=== PATIENT | male | born 1935 | race Caucasian/White ===

== ENCOUNTER 2022-12-11 09:10 | Emergency (ER) | payer MEDICARE, SELFPAY ==
[2022-12-11 09:13] VITALS: BP 136/81; PULSE 70; RESP 20; TEMP 35.8; O2SAT 97
[2022-12-11 09:29] VITALS: BMI 28.5
--- NOTE | 2022-12-11 10:09 | EKG12_ITS ---
Test Reason : CONFUSIONS Blood Pressure : / mmHG Vent. Rate : 062 BPM Atrial Rate : 062 BPM P-R Int : 356 ms QRS Dur : 084 ms QT Int : 448 ms P-R-T Axes : 074 -17 120 degrees QTc Int : 454 ms Sinus rhythm with 1st degree A-V block Nonspecific T wave abnormality Abnormal ECG Confirmed by ESTEBAN ISAACS, GEORGE ([id number]), news editor DEBRA CARLSON ([id number]) on 12/14/2022 10:35:04 AM Referred By: Confirmed By:JIMMIE ORELLANA MD
--- NOTE | 2022-12-11 10:09 | CT_ITS ---
INDICATION: weakness EXAMINATION: CT BRAIN - CT Head or Brain W/O Contrast Injection TECHNIQUE: Multiple axial images were obtained of the head without intravenous contrast. A radiation dose optimization technique was used for this scan. IV Contrast dosage and agent: None. RADIATION DOSAGE (If Supplied By Facility): CTDIvol = ( 44.99 ) mGy, DLP = ( 846.73 ) mGycm COMPARISON: No relevant prior comparison study available FINDINGS: BRAIN PARENCHYMA: No intra- or extra-axial hemorrhage. No evidence of acute infarct. No intracranial mass or mass effect. There is preservation of the romero/white matter interface. Posterior fossa structures are unremarkable. Mild chronic periventricular deep white matter changes likely due to microvascular disease. Atherosclerotic calcifications of the cavernous internal carotid arteries. CSF SPACES: Appropriate for age. No hydrocephalus. Basal cisterns are patent. CALVARIUM, SKULL BASE, PARANASAL SINUSES AND MASTOID AIR CELLS: Clear. No discrete lytic or blastic abnormalities. ORBITS: Both globes, extraocular muscles, optic nerves and retrobulbar fat appear unremarkable. ASPECTS Score for Acute Strokes: 10 CT/Brain/Head without Contrast IMPRESSION: No acute intracranial process. Electronically Signed: Nithin Antoine MD at 11:40 EDT ,
--- NOTE | 2022-12-11 10:10 | EDS_ITS ---
HPI History of Present Illness Chief Complaint: Confusion Narrative Narrative: Patient presents with generalized weakness. Apparently he got up in the middle the night his gait was a little unsteady and he fell. He thinks he may have hit the right side of his ribs as well as possibly his head. He has no headache at this time. He was somewhat short of breath at the time however this has improved and although he still feels slightly weak he thinks he feels better and is breathing better than he did after the fall. No recent fevers or chills. No urinary symptoms. He is denying any other type of chest pain other than rib pain on the right lower side. He is on Eliquis and takes it. He has no lower extremity edema or calf pain. [facility] Medical History Atrial fibrillation Hx of completed stroke Hypertension Home Medications apixaban 5 mg tablet (Eliquis) 5 mg PO BID 12/11/22 [History Last Taken Unknown] atorvastatin 80 mg tablet 80 mg PO DAILY 12/11/22 [History Last Taken Unknown] lisinopril 40 mg tablet 40 mg PO DAILY 12/11/22 [History Last Taken Unknown] nifedipine 90 mg tablet,extended release 90 mg PO DAILY 12/11/22 [History Last Taken Unknown] tamsulosin 0.4 mg capsule (Flomax) 0.8 mg PO QHS 12/11/22 [History Last Taken Unknown] Allergy/AdvReac Type Severity Reaction Status Date / Time tetanus and diphtheria Allergy Severe Anaphylaxis Verified 12/11/22 09:13 toxoids dronedarone [From Multaq] AdvReac Severe SYNCOPE Verified 12/11/22 09:13 Social History Smoking Status: Never smoker ROS ROS ED ROS Narrative Past medical history: Reviewed, includes prior hemorrhagic stroke, he continues to have paroxysmal A-fib and is still on Eliquis Medications: Reviewed including Eliquis Social history: Noncontributory Review of systems: All systems negative except as indicated General: No fever Eyes: No visual changes ENT: No upper airway congestion, normal voice Neck: No neck pain Cardiovascular: No chest pain Chest wall: Right-sided chest wall pain Respiratory: He had some dyspnea last night and early this morning however this seems to have subsided. Gastrointestinal: No abdominal pain, nausea vomiting or diarrhea Genitourinary: No dysuria Musculoskeletal: Denies myalgias no difficulty with ambulation Skin: No rash Neurological: No memory loss, confusion or any focal weakness. He had some confusion again this is resolved. EXAM Physical Exam Narrative Exam Narrative: Physical exam General: Well nourished, Well developed, No Acute Distress Head: Normocephalic, see any signs of trauma. Eyes: Conjunctiva not pale pulls are equal and reactive about 3 mm. ENT: Moist mucous membranes I do not see any signs of dehydration. Neck: Supple, Nontender, No lymphadenopathy Cardiovascular: Regular rate, Regular rhythm Respiratory: No distress, CTA bilaterally Chest wall: Right chest wall pain in the mid axillary line of the lower ribs however I do not see any contusions. Abdomen: Soft, Nontender, Nondistended Back: Nontender, Normal Inspection. Negative for: CVA tenderness Extremities: Nontender, No edema Skin: Normal color, No rash Neurological: Alert, Normal Strength, Normal Sensation Psychological: Normal affect Const Vital Signs: 12/11/22 09:13 Temperature 96.4 F L Temperature Source Temporal Pulse Rate 70 Respiratory Rate 20 H Blood Pressure 136/81 H Blood Pressure Mean 99 Pulse Ox 97 Oxygen Delivery Method Room Air MDM MDM MDM Narrative Medical decision making narrative: Work-up is unremarkable. No evidence of intracranial disease, no evidence of UTI or any kind of infection no anemia or electrolyte problems. He appears well. He is now able to ambulate and get around, he feels much better. He does have rib contusion but otherwise no other issues. We will discharge him in stable condition. His son will take him home. Patient does not meet admission criteria. I am not worried about pulmonary embolism, he takes his Eliquis twice a day and does not miss doses. Lab Data Labs: Laboratory Results - last 24 hr 12/11/22 12/11/22 10:20 12:20 WBC 10.3 RBC 4.27 L Hgb 13.0 Hct 37.5 L MCV 87.8 MCH 30.4 MCHC 34.7 RDW Std Deviation 40.6 RDW Coeff of Virgen 12.7 Plt Count 214 MPV 9.1 Immature Gran % (Auto) 1.000 H Neut % (Auto) 82.6 H Lymph % (Auto) 8.3 L [place] % (Auto) 6.4 Eos % (Auto) 1.1 Baso % (Auto) 0.6 Absolute Neuts (auto) 8.5 H Absolute Lymphs (auto) 0.86 Nucleated RBC % 0 Sodium 137 Potassium 3.8 Chloride 105 Carbon Dioxide 28.0 Anion Gap 4 L BUN 22 H Creatinine 0.98 Estim Creat Clear Calc 51.52 Est GFR (MDRD) Af Amer 93 Est GFR (MDRD) Non-Af 77 BUN/Creatinine Ratio 22.3 H Glucose 167 H Calcium 9.1 Total Bilirubin 0.90 AST 29 ALT 38 Alkaline Phosphatase 100 Troponin I High Sens 9 B-Natriuretic Peptide 135.0 H Total Protein 7.3 Albumin 3.7 Globulin 3.6 Albumin/Globulin Ratio 1.0 Urine Color Yellow Urine Clarity Sl. Cloudy Urine pH 6.0 Ur Specific [place] 1.020 Urine Protein 30 H Urine Glucose (UA) Normal Urine Ketones 5 H Urine Occult Blood 10 H Urine Nitrite Negative Urine Bilirubin Negative Urine Urobilinogen 4 H Ur Leukocyte Esterase 25 H Urine RBC 0-5 SEEN Urine WBC 0 SEEN Ur Squamous Epith Cells 0 SEEN Urine Bacteria 0 SEEN Urine Mucus 0 SEEN Radiography Diagnostic Testing: Clinical Impression(s) from Imaging Studies Brain CT 12/11/22 10:09 IMPRESSION: No acute intracranial process. Electronically Signed: Nithin Antoine MD at 11:40 EDT , Chest X-Ray 12/11/22 10:45 IMPRESSION: No radiographic evidence of acute cardiopulmonary disease. Electronically Signed: Nithin Antoine MD at 11:41 EDT , X-ray read by me as normal. Discharge Plan Triage Chief Complaint: Confusion ED Provider: Kristopher Fabian Dx/Rx/DC Orders Clinical Impression: Contusion of rib, Fall Instructions: ED Bruise, Rib Prescriptions: No Action tamsulosin [Flomax] 0.4 mg capsule 0.8 mg PO QHS nifedipine 90 mg tablet extended release 90 mg PO DAILY atorvastatin 80 mg tablet 80 mg PO DAILY lisinopril 40 mg tablet 40 mg PO DAILY Eliquis 5 mg tablet 5 mg PO BID Primary Care Provider: TRIP ALLEN Referrals: TRIP ALLEN [Other] Disposition Disposition: Home, Self Care
--- NOTE | 2022-12-11 10:14 | NURSING ---
NO OLD EKGS
[2022-12-11 10:26] LABS: Absolute Lymphocyte Count 0.86 X10^3/uL (0.83-4.51); Absolute Neutrophil Count 8.5 X10^3/uL (2.0-7.7); Basophil# 0.06 X10^3/uL; Basophil% 0.6 % (0-1); Eosinophil# 0.11 X10^3/uL; Eosinophils% 1.1 % (0-5); Hematocrit 37.5 % (40-54); Lymphocyte # 0.86 X10^3/ul (0.83-4.51); Lymphocyte % 8.3 % (19-41); Mean Corp Hgb Conc 34.7 g/dL (32-36); Mean Corpuscular Hgb 30.4 pg (27.0-32.0); Mean Corpuscular Volume 87.8 fL (80-94); Mean Platelet Vol. 9.1 fl (6.2-12.0); Monocyte# 0.66 X10^3/uL; Monocyte% 6.4 % (0-10); NRBC Flagged by Analyzer 0 % (0-5); Neutrophil # 8.52 X10^3/uL (2.7-7.7); Neutrophil % 82.6 % (47-70); Platelet Count 214 K/mm3 (150-450); RBC Distribution Width CV 12.7 % (11.6-14.6); RBC Distribution Width SD 40.6 fl (35.1-43.9); Red Blood Count 4.27 M/mm3 (4.6-6.2); White Blood Count 10.3 K/mm3 (4.4-11.0)
[2022-12-11 10:44] LABS: AST(SGOT) 29 U/L (15-37); Alanine Aminotransfer ALT/SGPT 38 U/L (16-61); Albumin, Serum 3.7 g/dL (3.2-5.0); Alkaline Phosphatase 100 U/L (45-117); Anion Gap 4 (5-15); BUN 22 mg/dL (7-18); BUN/Creat Ratio 22.3 RATIO (10-20); Calcium,Total 9.1 mg/dL (8.5-10.1); Chloride 105 mmol/L (98-107); Creatinine, Serum 0.98 mg/dL (0.70-1.30); EST Glomerular Filtration Rate 77 mL/min (>60); Est Glom Filt Rate - Afr Amer 93 mL/min (>60); Estimated Creatinine Clearance 51.52 ml/min; Globulin 3.6 g/dL (2.2-4.2); Glucose 167 mg/dL (74-106); Potassium 3.8 mmol/L (3.5-5.1); Protein, Total 7.3 g/dL (6.4-8.2); Sodium Level 137 mmol/L (136-145); Troponin-I HS 9 pg/mL (3.0-78.0)
--- NOTE | 2022-12-11 10:45 | RAD_ITS ---
INDICATION: sob EXAMINATION/TECHNIQUE: X-RAY - XR Chest 2 Views COMPARISON: No relevant prior comparison study available FINDINGS: LINES/DEVICES: None. LUNGS: No consolidation, edema or effusion. No pneumothorax. MEDIASTINUM AND CARDIOVASCULAR STRUCTURES: Cardiac silhouette not enlarged. Atherosclerotic calcifications and tortuosity of the thoracic aorta. Central airways and mediastinal contour are unremarkable. BONES AND SOFT TISSUES: Degenerative changes of the thoracic spine. RAD/Chest PA and Lateral IMPRESSION: No radiographic evidence of acute cardiopulmonary disease. Electronically Signed: Nithin Antoine MD at 11:41 EDT ,
[2022-12-11 12:26] LABS: Bacteria 0 SEEN /hpf (None Seen); Mucous, Urine 0 SEEN /hpf (<or=2+); Squamous Epithelial Cells - UA 0 SEEN /hpf (0-5); White Blood Cells 0 SEEN /hpf (0-5)
[2022-12-11 12:30] LABS: Color, Urine Yellow (Yellow); Glucose, Dipstick Normal (Normal); Ketone-Dipstick 5 mg/dl (Negative); Leukocyte Esterase-Dipstick 25 /ul (Negative); Nitrite-Dipstick Negative (Negative); Occult Blood-Urine 10 /ul (Negative); Protein-Dipstick 30 mg/dl (Negative); Urine Bilirubin Dipstick Negative (Negative); Urine Clarity Sl. Cloudy (Clear); Urine Urobilinogen 4 mg/dl (Normal)
[2022-12-11 12:38] LABS: Red Blood Cells-Urine 0-5 SEEN /hpf (0-5)
[2022-12-11 12:48] VITALS: BP 147/89
== END 2022-12-11 12:49 | disposition home or self-care (01) ==
PROVIDERS: Emergency Provider Emergency Medicine; Visit Provider Emergency Medicine
DX: R41.0 Disorientation, unspecified (principal); I48.0 Paroxysmal atrial fibrillation; S20.20XA Contusion of thorax, unspecified, initial encounter; I10 Essential (primary) hypertension; W19.XXXA Unspecified fall, initial encounter; Z79.01 Long term (current) use of anticoagulants; Z86.73 Personal history of transient ischemic attack (TIA), and cerebral infarction without residual deficits; Z79.899 Other long term (current) drug therapy; R06.02 Shortness of breath
CPT/HCPCS: 70450; 71046; 80053; 81001; 83880; 84484; 85025; 93005; 99283

== ENCOUNTER 2022-12-17 05:24 | Emergency (ER) | payer MEDICARE, SELFPAY ==
[2022-12-17 05:25] VITALS: BP 119/79; PULSE 83; RESP 18; TEMP 36.3; O2SAT 95; BMI 27.9
--- NOTE | 2022-12-17 05:49 | CT_ITS ---
We are attempting to reach an attending provider to discuss findings. An addendum with communication details will be sent when the communication is complete. EXAM: CT CHEST WITHOUT INTRAVENOUS CONTRAST CLINICAL INDICATION: right sided chest pain following fall 1 week ago. bone series included TECHNIQUE: Helically acquired images were obtained of the chest without intravenous contrast. This CT exam was performed using one or more of the following dose reduction techniques: automated exposure control, adjustment of the mA and/or kV according to patient size, and/or use of iterative reconstruction technique. RADIATION DOSE: CTDIvol = 15.07 mGy, DLP = 640.10 mGy-cm COMPARISON: Chest radiograph December 11, 2022, there was no visible pneumothorax identified. FINDINGS: LUNGS AND PLEURAL SPACES: There is right pneumothorax, maximum thickness 2.1 cm at the level of the right lung base and 1.8 cm AP at the level of the medial right middle lobe, estimated to be less than 10%. Mild to moderate right pleural effusion, maximum thickness 3.4 cm, Hounsfield units less than 15. Mild groundglass opacity and consolidation at the right lung base, likely compressive atelectasis. No mass. HEART: Mild fluid in the superior pericardial recesses. At least moderate coronary artery calcifications and/or stents. Normal heart size. Mild pericardial effusion, roughly 1.2 cm anterior to the heart. MEDIASTINUM: Small mediastinal lymph nodes. Esophagus is unremarkable. No hiatal hernia. THYROID: Unremarkable. No thyroid lesions. BONES/JOINTS: There are fractures of right fourth through eighth lateral ribs, minimally displaced. Advanced degenerative change at the right glenohumeral joint. Mild degenerative spine changes, no acute findings of the spine. No suspicious lytic or blastic abnormality. VASCULATURE: Ascending aorta 3.7 cm, moderate calcified aortic arch is normal in caliber, descending thoracic aorta is 3.2 cm, not frankly aneurysmal. Heavily calcified proximal intra-abdominal aorta without evidence of aneurysm or dissection. GALLBLADDER AND BILE DUCTS: Cholecystectomy clips. SPLEEN: No acute abnormality of the unenhanced liver or spleen. Multiple calcified splenic granulomas. KIDNEYS AND URETERS: Fairly simple-appearing 2.3 cm presumed right renal cyst, not fully characterized on unenhanced CT. STOMACH AND BOWEL: Presumed duodenal diverticulum common duct of roughly 1 cm. The uncinate process of the pancreas is not fully included. Mildly prominent small bowel content. CT/Chest without Contrast IMPRESSION: 1. Several right lateral acute rib fractures. 2. Mild right pneumothorax, estimated to be roughly 10%. 3. Mild dependent right pleural effusion or hemothorax. Dependent compressive atelectasis at the right lung base. 4. Advanced coronary artery calcifications and suspected stents. Small pericardial effusion. 5. Presumed right renal cyst. Cholecystectomy. Advanced degenerative change of the right glenohumeral joint. Electronically Signed: Lakesah Whelan MD at 6:40 EDT ,
[2022-12-17] MEDS: Ondansetron 4 MG/2 ML Vial IV (06:00)
[2022-12-17] MEDS: Morphine 4 MG/ML Syringe IV (06:01)
[2022-12-17] MEDS: Orphenadrine 60 MG/2 ML Ampul IV (06:02)
--- NOTE | 2022-12-17 06:57 | EX.ED.DYSGE1 ---
HPI History of Present Illness Chief Complaint: Chest Other Informant: patient and friend Narrative Narrative: Patient is an 87-year-old male from home with past medical history of BPH hypertension paroxysmal A-fib and previous CVA with right-sided deficit. He was seen on December 11 after a mechanical fall and at that time had a head CT which revealed no acute brain bleed and a chest x-ray which revealed no obvious pneumothorax rib fracture or hemothorax. The patient's been at home and been doing well. He states that yesterday he was able to drive and he has been continue to do his normal activities of daily living. He reports he got up to go to the restroom this morning and after doing so sharp pain in the right lateral side of his chest. He states that there was no fall or repeat trauma but based on the sudden onset of pain patient and friend had concern for potential fracture or pneumothorax or cardiac event so patient was brought to the ER for evaluation [facility] Medical History Atrial fibrillation Hx of completed stroke Hypertension Home Medications apixaban 5 mg tablet (Eliquis) 5 mg PO BID 12/11/22 [History Last Taken Unknown] atorvastatin 80 mg tablet 80 mg PO DAILY 12/11/22 [History Last Taken Unknown] lisinopril 40 mg tablet 40 mg PO DAILY 12/11/22 [History Last Taken Unknown] nifedipine 90 mg tablet,extended release 90 mg PO DAILY 12/11/22 [History Last Taken Unknown] tamsulosin 0.4 mg capsule (Flomax) 0.8 mg PO QHS 12/11/22 [History Last Taken Unknown] Allergy/AdvReac Type Severity Reaction Status Date / Time tetanus and diphtheria Allergy Severe Anaphylaxis Verified 12/17/22 05:28 toxoids dronedarone [From Multaq] AdvReac Severe SYNCOPE Verified 12/17/22 05:28 Social History Smoking Status: Never smoker ROS ROS ED Constitutional Constitutional ED: Denies chills or fever(s) Eyes Eyes: Denies change in vision ENT ENT ED: Denies sore throat Cardiovascular Cardiovascular: Reports chest pain Respiratory/Chest Respiratory/Chest: Denies cough or dyspnea Gastrointestinal Gastrointestinal: Denies abdominal pain, diarrhea, nausea or vomiting Genitourinary Genitourinary ED: Denies dysuria or hematuria Musculoskeletal Musculoskeletal: Denies back pain Integumentary Denies Abrasions or rash Neurologic Neurologic: Denies headache(s) Hematologic/Lymphatic Hematologic/Lymphatic: Reports easy bleeding and easy bruising EXAM Physical Exam Const Vital Signs: 12/17/22 05:25 12/17/22 05:29 Temperature 97.4 F L Temperature Source Temporal Pulse Rate 83 Respiratory Rate 18 Respiratory Effort Normal Respiratory Pattern Normal Blood Pressure 119/79 Blood Pressure Mean 92 Pulse Ox 95 Oxygen Delivery Method Room Air Positive well nourished and well developed General Appearance ED: well developed HEENT HEENT Narrative: Normocephalic atraumatic Eyes PERRL and EOMs intact bilaterally General Eye ED: Negative for scleral icterus Neck supple Neck Narrative: No bony deformity or step-off of the cervical spine no midline pain with palpation Chest Wall Chest Narrative: There is reproducible right anterior lateral chest wall pain rib regions 5-9 without bony deformity or crepitus noted No overlying ecchymosis present Resp normal respiratory effort and clear to auscultation bilaterally Resp Narrative: Breath sounds are diminished throughout with faint crackles noted in the right lower lobe but no nasal flaring retractions tachypnea or accessory muscle use Cardio regular rate and regular rhythm Rate: other Other Details: Radial and carotid pulses equal and symmetric GI normal to inspection, nondistended, normoactive bowel sounds, non-tender, non-distended and no masses GI Narrative: Soft nontender nondistended with normal active bowel sounds. No voluntary guarding or rigidity. No pulsatile mass or fluid wave Auscultation: normoactive bowel sounds Palpation: soft Extremity normal to inspection Neuro oriented x3 and CN's II-XII intact bilaterally Neuro Narrative: Patient has mild right-sided weakness and sensory loss consistent with previous stroke but no new or acute findings Sensorium / Orientation: alert Psych mental status grossly normal Skin no rashes or lesions noted Skin Narrative: No abrasions or ecchymosis noted MDM MDM MDM Narrative Medical decision making narrative: The patient had a mechanical fall from height 6 days ago and was seen in the ER that time where he had a negative head CT for skull fracture or brain bleed and a chest x-ray was obtained which revealed no pneumothorax rib fracture or hemothorax at that time. The patient was doing well and performing activities of daily living but this morning after just using the restroom reported sudden onset of increased pain. He presented to the ER and at that time has stable vitals and no signs of respiratory distress but with concern for missed rib fracture pneumothorax hemothorax or acute coronary syndrome EKG was obtained with noncontrast CT scan. EKG was sinus rhythm but CT scan revealed multiple rib fractures with associated small pneumothorax and hemothorax. Blood work showed the patient's hemoglobin has dropped from 13-11 but he is maintaining his blood pressure and therefore does not need any type of pressors or blood transfusion. The patient was placed on small amount of nasal cannula oxygen not because he is hypoxic but for nitrogen washout. As the patient's trauma is 6 days old I do not feel the need for further imaging studies as there is been no repeat trauma. I discussed the case with trauma surgeon/Dr. Barriga at [facility] and he recommends that despite having stable vitals and being 6 days out there with the worsening pain in his multiple symptoms that he be transferred to their facility for continued monitoring and care. The patient and his friend were notified of this they do agree to accept the transfer and patient was sent to the facility in stable condition. History & Record Review Discussion w/independent historian: Patient and Friend Lab Data Attestation: I reviewed the patient's lab results. Labs: Laboratory Results - last 24 hr 12/17/22 06:53 WBC 12.0 H RBC 3.77 L Hgb 11.1 L Hct 33.2 L MCV 88.1 MCH 29.4 MCHC 33.4 RDW Std Deviation 40.2 RDW Coeff of Virgen 12.6 Plt Count 220 MPV 9.2 Immature Gran % (Auto) 1.400 H Neut % (Auto) 81.1 H Lymph % (Auto) 5.9 L [place] % (Auto) 8.9 Eos % (Auto) 2.3 Baso % (Auto) 0.4 Absolute Neuts (auto) 9.7 H Absolute Lymphs (auto) 0.71 L Nucleated RBC % 0 PT 15.9 H INR 1.3 APTT 30.3 Sodium 139 Potassium 3.6 Chloride 106 Carbon Dioxide 30.0 Anion Gap 3 L BUN 18 Creatinine 1.04 Estim Creat Clear Calc 48.55 Est GFR (MDRD) Af Amer 87 Est GFR (MDRD) Non-Af 72 BUN/Creatinine Ratio 17.3 Glucose 137 H Calcium 8.7 Radiography Diagnostic Testing: Clinical Impression(s) from Imaging Studies Chest CT 12/17/22 05:49 IMPRESSION: 1. Several right lateral acute rib fractures. 2. Mild right pneumothorax, estimated to be roughly 10%. 3. Mild dependent right pleural effusion or hemothorax. Dependent compressive atelectasis at the right lung base. 4. Advanced coronary artery calcifications and suspected stents. Small pericardial effusion. 5. Presumed right renal cyst. Cholecystectomy. Advanced degenerative change of the right glenohumeral joint. Electronically Signed: Lakesha Whelan MD at 6:40 EDT , ADDENDUM: 12/17/22 0653 IMPRESSION: 1. Several right lateral acute rib fractures. 2. Mild right pneumothorax, estimated to be roughly 10%. 3. Mild dependent right pleural effusion or hemothorax. Dependent compressive atelectasis at the right lung base. 4. Advanced coronary artery calcifications and suspected stents. Small pericardial effusion. 5. Presumed right renal cyst. Cholecystectomy. Advanced degenerative change of the right glenohumeral joint. N.B. : The above Results were Read Back by Lakesha Whelan MD to Bruce Linder DO, and understanding confirmed on 12/17/2022 06:46:49 (ET). Electronically Signed: Lakesha Whelan MD at 6:40 EDT , Discharge Plan Triage Chief Complaint: Chest Other ED Provider: Bruce Linder Dx/Rx/DC Orders Clinical Impression: Multiple fractures of ribs of right side, Cerebral arteriosclerosis with history of previous stroke, Pneumothorax, Hemothorax, Current use of [facility] anticoagulation Prescriptions: No Action tamsulosin [Flomax] 0.4 mg capsule 0.8 mg PO QHS nifedipine 90 mg tablet extended release 90 mg PO DAILY atorvastatin 80 mg tablet 80 mg PO DAILY lisinopril 40 mg tablet 40 mg PO DAILY Eliquis 5 mg tablet 5 mg PO BID Primary Care Provider: Garrick Phillips Referrals: Garrick Phillips MD [Primary Care Provider] - Disposition Disposition: Acute Care Hospital Discharge Location: [facility]
[2022-12-17 07:00] LABS: Absolute Lymphocyte Count 0.71 X10^3/uL (0.83-4.51); Absolute Neutrophil Count 9.7 X10^3/uL (2.0-7.7); Basophil# 0.05 X10^3/uL; Basophil% 0.4 % (0-1); Eosinophil# 0.27 X10^3/uL; Eosinophils% 2.3 % (0-5); Hematocrit 33.2 % (40-54); Hemoglobin 11.1 g/dL (13.0-16.5); Lymphocyte # 0.71 X10^3/ul (0.83-4.51); Lymphocyte % 5.9 % (19-41); Mean Corp Hgb Conc 33.4 g/dL (32-36); Mean Corpuscular Hgb 29.4 pg (27.0-32.0); Mean Corpuscular Volume 88.1 fL (80-94); Mean Platelet Vol. 9.2 fl (6.2-12.0); Monocyte# 1.07 X10^3/uL; Monocyte% 8.9 % (0-10); NRBC Flagged by Analyzer 0 % (0-5); Neutrophil # 9.73 X10^3/uL (2.7-7.7); Neutrophil % 81.1 % (47-70); Platelet Count 220 K/mm3 (150-450); RBC Distribution Width CV 12.6 % (11.6-14.6); RBC Distribution Width SD 40.2 fl (35.1-43.9); Red Blood Count 3.77 M/mm3 (4.6-6.2)
[2022-12-17 07:13] LABS: International Normalized Ratio 1.3; Prothrombin Time (Protime)PT. 15.9 SECONDS (11.7-14.9)
[2022-12-17 07:14] LABS: Anion Gap 3 (5-15); BUN 18 mg/dL (7-18); BUN/Creat Ratio 17.3 RATIO (10-20); Calcium,Total 8.7 mg/dL (8.5-10.1); Chloride 106 mmol/L (98-107); Creatinine, Serum 1.04 mg/dL (0.70-1.30); EST Glomerular Filtration Rate 72 mL/min (>60); Est Glom Filt Rate - Afr Amer 87 mL/min (>60); Estimated Creatinine Clearance 48.55 ml/min; Glucose 137 mg/dL (74-106); Partial Thromboplast Time 30.3 Seconds (24.1-36.2); Potassium 3.6 mmol/L (3.5-5.1); Sodium Level 139 mmol/L (136-145)
[2022-12-17 07:39] VITALS: BP 134/76; PULSE 76; RESP 12; O2SAT 98
--- NOTE | 2022-12-17 08:05 | NURSING ---
ETA [id number]
--- NOTE | 2022-12-17 09:59 | ED.RN ---
ATTEMPTED TO CALL [facility] X 2 NO ANSWER
[2022-12-17 10:17] VITALS: BP 132/72; PULSE 74; RESP 12; O2SAT 98
== END 2022-12-17 10:21 | disposition short-term general hospital (02) ==
PROVIDERS: Emergency Provider Emergency Medicine; Visit Provider Emergency Medicine
DX: S22.41XA Multiple fractures of ribs, right side, initial encounter for closed fracture (principal); I48.0 Paroxysmal atrial fibrillation; I67.2 Cerebral atherosclerosis; I10 Essential (primary) hypertension; Z79.01 Long term (current) use of anticoagulants; J93.9 Pneumothorax, unspecified; J94.2 Hemothorax; I69.398 Other sequelae of cerebral infarction; Z79.899 Other long term (current) drug therapy; W19.XXXA Unspecified fall, initial encounter
CPT/HCPCS: 71250; 80048; 85025; 85610; 85730; 93005; 96374; 96375; 99283; A4216; J2405